=== PATIENT | male | born 1995 | race African-American/Black ===

== ENCOUNTER 2023-06-24 18:42 | Emergency (ER) | payer OTHER ==
[~2023-06-24] VITALS: Ht 180.3 cm; Wt 107.4 kg
[2023-06-24 19:40] LABS: RSV AMPLIFICATION NEGATIVE (NEGATIVE)
[2023-06-24] MEDS ORDERED: IBUPROFEN 600MG TAB PO ONE (22:15)
[2023-06-24] MEDS ORDERED: ALBUTEROL SULFATE 2.5MG/0.5ML INH NEB SOLN NEB ONE (22:25)
[2023-06-24] MEDS ORDERED: VENTAER INH (22:53)
[2023-06-24 23:01] VITALS: BP 134/64; TEMP 100.2; O2SAT 98
== END 2023-06-24 23:10 | disposition home or self-care (01) ==
LOC: M ED 18:42
DX: U07.1 COVID-19 (principal); F17.200 Nicotine dependence, unspecified, uncomplicated; Z88.6 Allergy status to analgesic agent; Z79.52 Long term (current) use of systemic steroids

== ENCOUNTER 2023-10-30 15:58 | Inpatient (IN) | payer OTHER ==
[~2023-10-30] VITALS: Ht 180.3 cm; Wt 108.2 kg
[~2023-10-30 15:58] MED LIST: VENTAER INH
[2023-10-30 17:09] LABS: AMPHETAMINES LEVEL URINE NEGATIVE (NEGATIVE); BARBITURATES URINE NEGATIVE (NEGATIVE); CANNABINOIDS URINE NEGATIVE (NEGATIVE); HEMOGLOBIN 16.1 g/dl (13.5-17.5); MEAN CORPUSCULAR HEMOGLOBIN 29.7 pg (27.0-33.0); MEAN CORPUSCULAR HGB CONC 34.3 g/dl (32.0-36.5); MEAN CORPUSCULAR VOLUME 86.7 fl (80.0-96.0); METHADONE URINE NEGATIVE (NEGATIVE); OPIATES URINE NEGATIVE (NEGATIVE); PHENCYCLIDINE URINE NEGATIVE (NEGATIVE); PLATELET COUNT, AUTOMATED 306 10^3/uL (150-450); RED BLOOD COUNT 5.42 10^6/uL (4.30-6.10); WHITE BLOOD COUNT 6.5 10^3/uL (4.0-10.0)
[2023-10-30 17:10] LABS: BENZODIAZEPINES URINE NEGATIVE (NEGATIVE); COCAINE METABOLITE URINE NEGATIVE (NEGATIVE)
[2023-10-30 17:12] LABS: ETHYL ALCOHOL (ETHANOL) 0.011 % (0.000-0.010)
[2023-10-30 17:13] LABS: SALICYLATE LEVEL < 3.0 MG/DL (<30)
[2023-10-30 17:14] LABS: ALBUMIN 4.2 G/DL (3.2-5.2); ALKALINE PHOSPHATASE 56 U/L (46-116); ALT/SGPT 38 U/L (7.0-40); AST/SGOT 24 U/L (<34); BILIRUBIN,DIRECT 0.2 MG/DL (<0.4); BILIRUBIN,TOTAL 0.5 MG/DL (0.3-1.2); BLOOD UREA NITROGEN 14 MG/DL (9-23); CARBON DIOXIDE LEVEL 31 MMOL/L (20-31); CHLORIDE LEVEL 103 MMOL/L (98-107); CREATININE FOR GFR 0.91 MG/DL (0.70-1.30); GLOMERULAR FILTRATION RATE > 60.0 (>60); GLUCOSE, FASTING 93 MG/DL (60-100); POTASSIUM SERUM 4.2 MMOL/L (3.5-5.1); SODIUM LEVEL 138 MMOL/L (136-145); TOTAL PROTEIN 8.1 G/DL (5.7-8.2)
[2023-10-30] MEDS ORDERED: MOM 30ML SUSPENSION UDC PO PRN (19:50)
[2023-10-30] MEDS ORDERED: MAALOX 30 ML SUSP *UDC PO PRN (19:50)
[2023-10-30] MEDS ORDERED: HOME MED LIST COMPLETE! XX SCH (22:00)
[2023-10-30] MEDS: NICOTINE 21MG/24HR 1 EA TRANSDERMAL TD SCH (23:01)
[2023-10-31 05:59] VITALS: BP 137/76; TEMP 98.3; O2SAT 97
[2023-10-31] MEDS: VENLAFAXINE **XR** 37.5 MG CAPSULE PO SCH (11:48)
[2023-10-31] MEDS: IBUPROFEN 400MG TAB PO PRN (16:34)
[2023-10-31 17:20] VITALS: BP 122/67; TEMP 98.3
[2023-10-31] MEDS: traZODone 50 MG TAB PO PRN (21:58)
[2023-11-01 06:14] VITALS: BP 117/58; TEMP 98; O2SAT 98
[2023-11-01] MEDS: RIZATRIPTAN BENZOATE 10 MG TAB PO PRN (09:43)
[2023-11-01 17:05] VITALS: BP 154/78; TEMP 97.5; O2SAT 98
[2023-11-01] MEDS: diphenhydrAMINE 25MG CAP PO PRN (21:49)
[2023-11-02 06:36] VITALS: BP 109/57; TEMP 97.7; O2SAT 98
[2023-11-02] MEDS ORDERED: RIZA10TA64 PO (10:38)
[2023-11-02] MEDS ORDERED: VENL37.598 PO (10:38)
[2023-11-02] MEDS ORDERED: DIPH-435 PO (10:38)
[2023-11-02] MEDS ORDERED: TRAZ-252 PO (10:38)
[2023-11-02] MEDS ORDERED: NICO21PAT TD (10:38)
== END 2023-11-02 10:53 | disposition home or self-care (01) | DRG 880 ==
LOC: M ED 15:58 → M ED INP 19:49 → M PSY 21:59
PROVIDERS: ADMIT Student in an Organized Health Care Education/Training Program; ATTEND Student in an Organized Health Care Education/Training Program
DX: F41.1 Generalized anxiety disorder (principal); R45.851 Suicidal ideations; F32.A Depression, unspecified; F43.20 Adjustment disorder, unspecified; Z63.5 Disruption of family by separation and divorce; Z88.6 Allergy status to analgesic agent; R51.9 Headache, unspecified

== ENCOUNTER 2024-02-18 14:07 | Inpatient (IN) | payer OTHER ==
[~2024-02-18] VITALS: Ht 180.3 cm; Wt 106.8 kg
[~2024-02-18 14:07] MED LIST changes: +DIPH-435 PO; +NICO21PAT TD; +RIZA10TA64 PO; +TRAZ-252 PO; +VENL37.598 PO
[2024-02-18 15:00] LABS: HEMATOCRIT 43.6 % (42.0-52.0); HEMOGLOBIN 15.4 g/dl (13.5-17.5); MEAN CORPUSCULAR HEMOGLOBIN 30.4 pg (27.0-33.0); MEAN CORPUSCULAR HGB CONC 35.3 g/dl (32.0-36.5); PLATELET COUNT, AUTOMATED 284 10^3/uL (150-450); RED BLOOD COUNT 5.07 10^6/uL (4.30-6.10); WHITE BLOOD COUNT 4.6 10^3/uL (4.0-10.0)
[2024-02-18 15:19] LABS: ETHYL ALCOHOL (ETHANOL) < 0.003 % (0.000-0.010)
[2024-02-18 15:21] LABS: ALBUMIN 3.9 G/DL (3.2-5.2); ALKALINE PHOSPHATASE 51 U/L (46-116); ALT/SGPT 47 U/L (7.0-40); AST/SGOT 22 U/L (<34); BILIRUBIN,DIRECT 0.3 MG/DL (<0.4); BILIRUBIN,TOTAL 0.6 MG/DL (0.3-1.2); BLOOD UREA NITROGEN 10 MG/DL (9-23); CALCIUM LEVEL 9.4 MG/DL (8.5-10.1); CARBON DIOXIDE LEVEL 28 MMOL/L (20-31); CHLORIDE LEVEL 106 MMOL/L (98-107); CREATININE FOR GFR 0.86 MG/DL (0.70-1.30); GLOMERULAR FILTRATION RATE > 60.0 (>60); GLUCOSE, FASTING 93 MG/DL (60-100); POTASSIUM SERUM 4.1 MMOL/L (3.5-5.1); SALICYLATE LEVEL < 3.0 MG/DL (<30); SODIUM LEVEL 139 MMOL/L (136-145); TOTAL PROTEIN 7.2 G/DL (5.7-8.2)
[2024-02-18 15:23] LABS: THYROID STIMULATING HORMONE 3.131 uIU/ML (0.55-4.78)
[2024-02-18 17:24] LABS: BARBITURATES URINE NEGATIVE (NEGATIVE); COCAINE METABOLITE URINE NEGATIVE (NEGATIVE); METHADONE URINE NEGATIVE (NEGATIVE); OPIATES URINE NEGATIVE (NEGATIVE); PHENCYCLIDINE URINE NEGATIVE (NEGATIVE)
[2024-02-18 17:25] LABS: AMPHETAMINES LEVEL URINE NEGATIVE (NEGATIVE); BENZODIAZEPINES URINE NEGATIVE (NEGATIVE)
[2024-02-18 17:30] LABS: CANNABINOIDS URINE POSITIVE (NEGATIVE)
[2024-02-18] MEDS: IBUPROFEN 600MG TAB PO ONE (17:47)
[2024-02-18] MEDS ORDERED: MOM 30ML SUSPENSION UDC PO PRN (18:00)
[2024-02-18] MEDS ORDERED: MAALOX 30 ML SUSP *UDC PO PRN (18:00)
[2024-02-18] MEDS ORDERED: ACETAMINOPHEN TAB 650MG DOSE (2X325MG) PO PRN (18:00)
[2024-02-18] MEDS: traZODone 50 MG TAB PO PRN (21:03)
[2024-02-18 21:30] VITALS: BP 124/72; TEMP 98.1; O2SAT 95
[2024-02-19 06:28] VITALS: BP 109/51; TEMP 97.6; O2SAT 100
[2024-02-19] MEDS ORDERED: HOME MED LIST COMPLETE! XX SCH (08:20)
[2024-02-19] MEDS: NICOTINE 21MG/24HR 1 EA TRANSDERMAL TD SCH (08:26)
[2024-02-19] MEDS: busPIRone 10 MG TAB PO SCH (11:03)
[2024-02-19] MEDS: SERTRALINE HCL 25 MG TABLET PO SCH (11:04)
[2024-02-19] MEDS: IBUPROFEN 400MG TAB PO PRN (16:04)
[2024-02-19 18:17] VITALS: BP 123/72; TEMP 98.6
[2024-02-19] MEDS: PRAZOSIN 1 MG CAP PO SCH (20:14)
[2024-02-20] MEDS: ONDANSETRON 4MG TAB PO ONE (03:13)
[2024-02-20 06:20] VITALS: BP 99/55; TEMP 97.9; O2SAT 98
[2024-02-20] MEDS ORDERED: ONDANSETRON 4MG TAB PO PRN (10:30)
[2024-02-20 17:32] VITALS: BP 131/88; TEMP 97.8; O2SAT 96
[2024-02-20] MEDS: QUEtiapine FUMARATE 25 MG TAB PO PRN (20:17)
[2024-02-21 06:20] VITALS: BP 121/61; TEMP 97.8; O2SAT 95
[2024-02-21] MEDS: diphenhydrAMINE 25MG CAP PO PRN (18:02)
[2024-02-21 18:35] VITALS: BP 117/68; TEMP 98; O2SAT 100
[2024-02-21] MEDS: QUEtiapine FUMARATE 50MG TAB PO PRN (20:06)
[2024-02-22 06:14] VITALS: BP 96/49; TEMP 97.5; O2SAT 97
[2024-02-22] MEDS: SERTRALINE HCL 25 MG TABLET PO ONE (10:28)
[2024-02-22 16:34] VITALS: BP 139/84; TEMP 98.9; O2SAT 98
[2024-02-23 06:29] VITALS: BP 138/74; TEMP 97.2; O2SAT 99
[2024-02-23] MEDS: SERTRALINE HCL 25 MG TABLET PO SCH (09:32)
[2024-02-23] MEDS ORDERED: RIZATRIPTAN MLT 10 MG TAB PO PRN (13:20)
[2024-02-23] MEDS ORDERED: FIORICET TAB PO PRN (13:20)
[2024-02-23] MEDS: FIORICET TAB PO ONE (13:56)
[2024-02-23 17:33] VITALS: BP 141/94; TEMP 98.4; O2SAT 98
[2024-02-24 06:26] VITALS: BP 118/53; TEMP 97.4; O2SAT 97
[2024-02-24 16:59] VITALS: BP 132/89; TEMP 97.1; O2SAT 98
[2024-02-24 20:59] VITALS: BP 132/75
[2024-02-25] MEDS ORDERED: BUSP10TA PO (12:11)
[2024-02-25] MEDS ORDERED: PRAZ1CAP PO (12:11)
[2024-02-25] MEDS ORDERED: RIZA10TA58 PO (12:11)
[2024-02-25] MEDS ORDERED: SERT25TA21 PO (12:11)
== END 2024-02-25 13:08 | disposition home or self-care (01) | DRG 881 ==
LOC: M ED 14:07 → EDBD 14:07 → M ED INP 18:00 → M PSY 20:42
PROVIDERS: ADMIT Student in an Organized Health Care Education/Training Program; ATTEND Student in an Organized Health Care Education/Training Program
DX: F32.A Depression, unspecified (principal); R45.851 Suicidal ideations; F41.8 Other specified anxiety disorders; Z63.5 Disruption of family by separation and divorce; F43.10 Post-traumatic stress disorder, unspecified; Z91.018 Allergy to other foods; Z88.6 Allergy status to analgesic agent; F12.90 Cannabis use, unspecified, uncomplicated; F17.290 Nicotine dependence, other tobacco product, uncomplicated; R51.9 Headache, unspecified; M54.59 Other low back pain; M25.562 Pain in left knee

== ENCOUNTER → 2024-06-19 | Outpatient (REF) ==
[~2024-06-19] MED LIST changes: +BUSP10TA PO; +PRAZ1CAP PO; +RIZA10TA58 PO; +SERT25TA21 PO
[2024-06-19 15:53] LABS: APPEARANCE, URINE HAZY (CLEAR); BACTERIA, URINE AUTO NEGATIVE (NEGATIVE); BILIRUBIN, URINE AUTO NEGATIVE (NEGATIVE); BLOOD, URINE BLOOD NEGATIVE (NEGATIVE); COLOR, URINE YELLOW (YELLOW); GLUCOSE, URINE (UA) AUTO NEGATIVE (NEGATIVE); KETONE, URINE AUTO NEGATIVE (NEGATIVE); LEUKOCYTE ESTERASE, URINE AUTO TRACE (NEGATIVE); MUCUS, URINE MODERATE (NEGATIVE); NITRITE, URINE AUTO NEGATIVE (NEGATIVE); PROTEIN, URINE AUTO NEGATIVE (NEGATIVE); RBC, URINE AUTO 1 /HPF (0-3); SPECIFIC GRAVITY URINE AUTO 1.028 (1.002-1.035); SQUAMOUS EPITHELIAL CELL UR AU 1 /HPF (0-6); WBC, URINE AUTO 14 /HPF (0-3)
[2024-06-19 15:54] LABS: BASO % 0.4 % (0.0-1.0); EOS # 0.1 10^3/uL (0.0-0.5); EOS % 1.8 % (0.0-3.0); HEMATOCRIT 44.7 % (42.0-52.0); HEMOGLOBIN 15.1 g/dl (13.5-17.5); LYMPH # 2.1 10^3/uL (1.5-5.0); LYMPH % 37.5 % (24.0-44.0); MEAN CORPUSCULAR HEMOGLOBIN 29.7 pg (27.0-33.0); MEAN CORPUSCULAR HGB CONC 33.8 g/dl (32.0-36.5); MONO % 17.3 % (2.0-8.0); NEUTROPHILS # 2.4 10^3/uL (1.5-8.5); PLATELET COUNT, AUTOMATED 335 10^3/uL (150-450); RED BLOOD COUNT 5.08 10^6/uL (4.30-6.10); WHITE BLOOD COUNT 5.5 10^3/uL (4.0-10.0)
== END ==
LOC: M PLAIMG 13:11
PROVIDERS: ATTEND Nurse Practitioner Family
DX: R13.10 Dysphagia, unspecified (principal); M54.2 Cervicalgia

== ENCOUNTER 2024-09-15 23:13 | Emergency (ER) | payer OTHER ==
[~2024-09-15] VITALS: Ht 182.9 cm; Wt 115.5 kg
[2024-09-15 23:15] VITALS: BP 125/81; TEMP 98.2; O2SAT 100
[2024-09-15 23:48] LABS: BASO % 0.3 % (0.0-1.0); EOS # 0.2 10^3/uL (0.0-0.5); EOS % 2.4 % (0.0-3.0); HEMATOCRIT 42.5 % (42.0-52.0); HEMOGLOBIN 14.7 g/dl (13.5-17.5); LYMPH # 2.9 10^3/uL (1.5-5.0); LYMPH % 38.6 % (24.0-44.0); MEAN CORPUSCULAR HEMOGLOBIN 29.9 pg (27.0-33.0); MEAN CORPUSCULAR HGB CONC 34.6 g/dl (32.0-36.5); MEAN CORPUSCULAR VOLUME 86.6 fl (80.0-96.0); MONO # 0.9 10^3/uL (0.0-0.8); MONO % 12.6 % (2.0-8.0); NEUTROPHILS # 3.4 10^3/uL (1.5-8.5); NEUTROPHILS % 45.8 % (36.0-66.0); PLATELET COUNT, AUTOMATED 279 10^3/uL (150-450); RED BLOOD COUNT 4.91 10^6/uL (4.30-6.10); WHITE BLOOD COUNT 7.4 10^3/uL (4.0-10.0)
[2024-09-16 00:15] LABS: CK-MB VALUE MASS 2.2 NG/ML (<3.6)
[2024-09-16 00:23] LABS: BLOOD UREA NITROGEN 18 MG/DL (9-23); CALCIUM LEVEL 8.7 MG/DL (8.5-10.1); CARBON DIOXIDE LEVEL 27 MMOL/L (20-31); CHLORIDE LEVEL 106 MMOL/L (98-107); CPK CREATINE PHOSPHOKINASE 343 U/L (46-171); CREATININE FOR GFR 1.01 MG/DL (0.70-1.30); GLOMERULAR FILTRATION RATE > 60.0 (>60); GLUCOSE, FASTING 102 MG/DL (60-100); MB/CK RELATIVE INDEX 0.64 (< OR =4); POTASSIUM SERUM 4.3 MMOL/L (3.5-5.1); SODIUM LEVEL 141 MMOL/L (136-145)
[2024-09-16 02:30] LABS: CK-MB VALUE MASS 1.2 NG/ML (<3.6)
[2024-09-16 02:31] LABS: CPK CREATINE PHOSPHOKINASE 338 U/L (46-171); MB/CK RELATIVE INDEX 0.35 (< OR =4)
== END 2024-09-16 05:00 | disposition left against medical advice (07) ==
LOC: M ED 23:13
DX: Z53.21 Procedure and treatment not carried out due to patient leaving prior to being seen by health care provider (principal)